=== PATIENT | male | born 1980 | race Caucasian/White ===

== ENCOUNTER 2023-11-26 03:13 | Emergency (ER) | payer BC, OTHER ==
[2023-11-26 03:32] LABS: BASOPHILS ABSOLUTE AUTO 0.04 K/uL (0.00-0.10); BASOPHILS PERCENT AUTO 0.3 % (0.1-1.3); EOSINOPHILS ABSOLUTE AUTO 0.18 K/uL (0.00-0.40); EOSINOPHILS PERCENT AUTO 1.3 % (0.0-5.4); HEMATOCRIT 41.7 % (38.4-49.7); HEMOGLOBIN 14.3 g/dL (12.9-16.9); IMMATURE GRAN ABSOLUTE AUTO 0.05 K/uL (0.00-0.23); IMMATURE GRAN PERCENT AUTO 0.4 % (0.0-0.7); LYMPHOCYTES PERCENT AUTO 10.3 % (11.4-47.7); MEAN CORPUSCULAR HEMOGLOBIN 27.4 pg (31.6-35.5); MEAN CORPUSCULAR HGB CONC 34.3 g/dL (31.6-35.5); MONOCYTES ABSOLUTE AUTO 0.83 K/uL (0.20-0.90); MONOCYTES PERCENT AUTO 6.1 % (3.3-12.6); NEUTROPHILS ABSOLUTE AUTO 11.08 K/uL (1.0-7.6); NEUTROPHILS PERCENT AUTO 81.6 % (40.0-78.1); PLATELET COUNT,PLT 333 K/uL (130-375); RED BLOOD CELL COUNT 5.21 M/uL (4.14-5.76); WHITE BLOOD CELL COUNT,WBC 13.6 K/uL (3.2-11.0)
[2023-11-26] MEDS: Tamsulosin 0.4 MG Cap.ER PO ONE (03:47)
[2023-11-26] MEDS: Sodium Chloride 0.9% 1,000 ML IV ONE (03:49)
[2023-11-26] MEDS: Ondansetron 4 MG/2 ML SDV IVPUSH ONE (03:50)
[2023-11-26 03:52] LABS: ALANINE AMINOTRANSFERASE,ALT 26 U/L (12-78); ALBUMIN 3.7 g/dL (3.4-5.0); ALKALINE PHOSPHATASE 96 U/L (46-116); ASPARTATE AMNIOTRANSFERASE,AST 18 U/L (15-37); BILIRUBIN TOTAL 0.5 mg/dL (0.2-1.0); BLOOD UREA NITROGEN,BUN 21 mg/dL (7-18); CALCIUM 8.6 mg/dL (8.5-10.1); CARBON DIOXIDE,CO2 26 mmol/L (21-32); CHLORIDE,CL 98 mmol/L (100-108); CREATININE 1.2 mg/dL (0.8-1.3); EST CRCL DRUG DOSING (CG) 86.22 mL/min; ESTIMATED GFR 76 mL/min (>60); GLUCOSE RANDOM 122 mg/dL (74-106); POTASSIUM,K 4.5 mmol/L (3.6-5.2); PROTEIN TOTAL,TP 7.5 g/dL (6.4-8.2); SODIUM,NA 135 mmol/L (140-148)
[2023-11-26] MEDS: HYDROmorphone 1 MG/ML Syringe IVPUSH ONE (03:56)
[2023-11-26 04:02] LABS: ANION GAP 15.5 mmol/L (5.0-14.0)
[2023-11-26 05:09] LABS: APPEARANCE,URINE SLIGHTLY CLOUDY (CLEAR); BILIRUBIN,URINE NEGATIVE (NEGATIVE); COLOR,URINE YELLOW (YELLOW); GLUCOSE,URINE NEGATIVE (NEGATIVE); KETONES,URINE NEGATIVE (NEGATIVE); LEUKOCYTE ESTERASE,URINE NEGATIVE (NEGATIVE); NITRITE,URINE NEGATIVE (NEGATIVE); OCCULT BLOOD,URINE LARGE (NEGATIVE); PROTEIN,URINE 30 mg/dL (NEGATIVE); UROBILINOGEN,URINE 0.2 EU/dL (0.2-1.0)
[2023-11-26 05:17] LABS: BACTERIA,URINE FEW; EPITHELIAL CELLS,URINE RARE; MUCUS,URINE NOT SEEN; RBC,URINE >100 (0-5); WBC,URINE 0-5 (0-5)
[2023-11-26 05:18] LABS: AMORPHOUS SEDIMENT,URINE NOT SEEN
[2023-11-26 05:42] VITALS: BP 126/67; PULSE 68
== END 2023-11-26 06:02 | disposition home or self-care (01) ==
LOC: JP.ED 03:13
DX: N20.0 Calculus of kidney (principal); Z79.899 Other long term (current) drug therapy
CPT/HCPCS: 36415; 74176; 80053; 81001; 83690; 85025; 96374; 96375; 99284; A9270; J1170; J2405; J7030